=== PATIENT | female | born 1955 | race Caucasian/White ===

== ENCOUNTER 2018-01-06 17:48 | Inpatient (IN) | payer OTHER ==
[~2018-01-06] VITALS: Ht 165.1 cm; Wt 93.0 kg
[~2018-01-06 17:48] MED LIST: ALDACTONE100 MG PO; FEOSOL325 M1 PO; FUROSEMIDE 40 M40 M1 PO; OMEPRAZOLE20 M2; PROPRANOLOL 1010 M1; PROPRANOLOL 20M20 MG PO; PROTONIX40 M2 PO; [UNRECOGNIZED DRUG - OTHER]
[2018-01-06 17:50] VITALS: BP 137/58
[2018-01-06 18:41] LABS: HEMOGLOBIN 9.1 gm/dL (12.0-15.0); MCH 34.1 pg (26.0-34.0); MCHC 35.2 g/dL (28.0-37.0); MCV 96.8 fL (80.0-100.0); MPV 8.5 fl. (7.2-11.1); NUCLEATED RBCS 0 /100WBC; RBC 2.68 mil/uL (4.20-5.00); WBC 5.5 thou/uL (4.0-11.0)
[2018-01-06 18:49] LABS: CALCIUM 8.3 mg/dL (8.5-10.1); CREATININE 2.1 mg/dL (0.6-1.3); POTASSIUM 3.8 mmol/L (3.5-5.1)
[2018-01-06 18:51] LABS: INFLUENZA A ANTIGEN None Detected (None Detect); INFLUENZA B ANTIGEN None Detected (None Detect)
[2018-01-06 18:52] LABS: URINE BILIRUBIN NEGATIVE (Negative); URINE BLOOD TRACE (Negative); URINE CLARITY CLEAR; URINE COLOR YELLOW; URINE GLUCOSE-RANDOM NEGATIVE (Negative); URINE KETONES NEGATIVE (Negative); URINE LEUKOCYTES-REFLEX TRACE (Negative); URINE NITRITE-REFLEX NEGATIVE (Negative); URINE PROTEIN NEGATIVE (Negative); URINE SPECIFIC GRAVITY 1.025 (1.005-1.030); URINE UROBILINOGEN 0.2 E.U./dl (0.2-1.0)
[2018-01-06 18:54] LABS: ALBUMIN 2.8 g/dL (3.4-5.0); TOTAL BILIRUBIN 3.6 mg/dL (<0.1-1.0); TOTAL PROTEIN 6.6 g/dL (6.4-8.2)
[2018-01-06 19:01] LABS: BACTERIA-REFLEX 1-9 Few /HPF (None Seen); MUCUS 0-3 Light strn/LPF (None Seen); SQUAMOUS 0-3 Few /LPF (0-3); URINE RBC 0-2 Rare /HPF (0-2); URINE WBC-REFLEX 0-5 Rare /HPF (0-5)
[2018-01-06] MEDS ORDERED: VITAMINC500 PO (19:01)
[2018-01-06] MEDS ORDERED: VITAMIN D3400 UNIT PO (19:01)
[2018-01-06] MEDS ORDERED: CONSTULOSE10 GM/15 M PO (19:01)
[2018-01-06 19:02] LABS: CASTS None Seen /LPF (None Seen); CRYSTALS None Seen /LPF (None Seen)
[2018-01-06] MEDS ORDERED: OMEPRAZOLE20 M2 PO (19:02)
[2018-01-06] MEDS ORDERED: PROPRANOLOL 20M20 MG PO (19:02)
[2018-01-06 19:12] LABS: PLATELET COUNT* 53 thou/uL (150-400)
[2018-01-06 19:16] LABS: ABSOLUTE LYMPHOCYTES 0.2 thou/uL (0.8-5.3); ABSOLUTE MONOCYTES 0.2 thou/uL (0.0-1.2); ABSOLUTE NEUTROPHILS 5.1 thou/uL (1.6-8.1); PLATELET ESTIMATE DECREASED
--- NOTE | 2018-01-06 19:27 | NUR ---
DR. ANDERSEN PAGED FOR POSITIVE SEPSIS SCREENING. NO CALL BACK YET. [facility]
[2018-01-06 19:45] VITALS: BP 116/41
[2018-01-06 19:46] VITALS: BP 98/45
[2018-01-07 03:55] VITALS: BP 110/34
--- NOTE | 2018-01-07 05:21 | NUR ---
PATIENT ARRIVED FROM ER VIA CART TO ROOM 304 WITH FAMILY AT BEDSIDE. PT ALERT/ORIENTED X4. PT DENIES PAIN. PT ADMITTED WITH CELLULITIS OF LT LEG BUT LEG HAS BROWN DISCOLORATION PT AND DAUGHTER SAID HAS BEEN THERE FOR A LONG TIME. NO REDNESS, SWELLING NOTED. PT HAS HAD TEMPERATURE BUT SAYS SHE IS UNABE TO TAKE IBUPROFEN OR TYLENOL DUE TO LIVER DISEASE. ICE PACKS PLACED UNDER ARMS AND MOST BLANKETS REMOVED. PT IS ON ANTIBIOTICS AT THIS TIME. PT IS NORMALLY UP AD SHARON AT HOME BUT IS VERY WEAK. BED ALARM IS ON AND PT INSTRUCTED TO CALL PRIOR TO GETTING OUT OF BED. PT ORIENTED TO ROOM/POLICIES AND VERBALIZES UNDERSTANDING. FREQUENTLY USED ITEMS AND CALL LIGHT WITHIN REACH. SIDERAILS UPX2. WILL CONTINUE TO MONITOR.
[2018-01-07 08:00] VITALS: BP 122/55
--- NOTE | 2018-01-07 15:40 | NUR ---
PT.ALERT GREGORY ORIENTED. LIVES WITH WHO WAS AT BEDSIDE. ANOTHER COUPLE WAS VISITING BUT PT.SAID THEY COULD STAY. PT.STATED SHE IS NORMALLY INDEPENDENT AT HOME. DOES NOT USE ANY DME BUT HAS DME AT HOME THAT WAS HER MOM'S. PT.HAD BEEN SEEN IN THE WOUND CARE CLINIC BACK IN 2010 AND SAW FOR HER CELLULITIS. SHE SHOULD NOT HAVE ANY DISCHARGE NEEDS.
--- NOTE | 2018-01-07 17:23 | EKG ---
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: Vicky VILLAGOMEZ : 1955 Requested By: Azam Montoya Order Number: [id number] MD: Yasmany Treadwell Measurements Intervals Jackson Rate: 106 P: 89 AK: 139 QRS: 48 QRSD: 85 T: -57 QT: 322 QTc: 428 Interpretive Statements Sinus tachycardia Nonspecific repol abnormality, diffuse leads, consider ischemia Compared to ECG 06/18/2013 14:09:51 Early repolarization now present Sinus rhythm no longer present Electronically Signed On 01-07-2018 17:23:11 CDT by Yasmany Treadwell [email or web address] <ELECTRONICALLY SIGNED> By: Yasmany Treadwell MD, FACC 01/07/18 1723 181 15 Yasmany Treadwell MD, FACC /EPI
[2018-01-08] VITALS: BP 129/48
[2018-01-08 04:31] LABS: HEMATOCRIT 20.2 % (37.0-47.0); MCH 33.8 pg (26.0-34.0); MCHC 35.3 g/dL (28.0-37.0); MCV 95.6 fL (80.0-100.0); MPV 8.5 fl. (7.2-11.1); RBC 2.11 mil/uL (4.20-5.00); RDW-CV 14.3 % (10.5-14.5)
--- NOTE | 2018-01-08 04:37 | NUR ---
PATIENT SLEPT WELL DURING THIS SHIFT. PT UP TO BATHROOM WITH STEADY GAIT. PT DENIES PAIN ON THIS SHIFT. PT WITH FLUIDS/ANTIBIOTICS INFUSING PER DR ORDER. PT HAS BEEN AFEBRILE DURING THIS SHIFT. PT DENIES NEEDS AT THIS TIME. FREQUENTLY USED ITEMS AND CALL LIGHT WITHIN REACH. SIDERAILS UPX2. WILL CONTINUE TO MONITOR.
[2018-01-08 04:41] LABS: HEMOGLOBIN 7.1 gm/dL (12.0-15.0)
[2018-01-08 04:43] LABS: WBC 1.7 thou/uL (4.0-11.0)
[2018-01-08 04:53] LABS: ALBUMIN 2.2 g/dL (3.4-5.0); CALCIUM 7.6 mg/dL (8.5-10.1); CREATININE 1.9 mg/dL (0.6-1.3); MAGNESIUM 1.6 mg/dL (1.8-2.4); POTASSIUM 3.6 mmol/L (3.5-5.1); TOTAL BILIRUBIN 2.4 mg/dL (<0.1-1.0); TOTAL PROTEIN 5.2 g/dL (6.4-8.2)
[2018-01-08 07:37] LABS: HEMATOCRIT 20.3 % (37.0-47.0); HEMOGLOBIN 7.1 gm/dL (12.0-15.0); MCH 33.6 pg (26.0-34.0); MCV 96.1 fL (80.0-100.0); MPV 8.9 fl. (7.2-11.1); NUCLEATED RBCS 0 /100WBC; RBC 2.11 mil/uL (4.20-5.00); RDW-CV 13.8 % (10.5-14.5)
[2018-01-08 07:47] LABS: PLATELET COUNT* 31 thou/uL (150-400); WBC 1.7 thou/uL (4.0-11.0)
[2018-01-08 08:00] VITALS: BP 138/55
[2018-01-08 08:17] LABS: ABSOLUTE LYMPHOCYTES 0.4 thou/uL (0.8-5.3); ABSOLUTE NEUTROPHILS 1.2 thou/uL (1.6-8.1); HYPOCHROMASIA 1+; PLATELET ESTIMATE DECREASED
[2018-01-08 08:18] LABS: ANISOCYTOSIS 1+; POIKILOCYTOSIS 1+
[2018-01-08 12:07] LABS: ABSOLUTE EOSINOPHILS 0.1 thou/uL (0.0-0.7); ABSOLUTE LYMPHOCYTES 0.3 thou/uL (0.8-5.3); ABSOLUTE MONOCYTES 0.3 thou/uL (0.0-1.2); ABSOLUTE NEUTROPHILS 2.4 thou/uL (1.6-8.1); BASOPHILS 0.4 %; EOSINOPHILS 3.1 %; HEMATOCRIT 23.9 % (37.0-47.0); HEMOGLOBIN 8.4 gm/dL (12.0-15.0); LYMPHOCYTES 10.7 %; MCHC 35.4 g/dL (28.0-37.0); MCV 96.2 fL (80.0-100.0); MPV 8.5 fl. (7.2-11.1); NUCLEATED RBCS 0 /100WBC; POLYS 75.8 %; RBC 2.48 mil/uL (4.20-5.00); RDW-CV 14.3 % (10.5-14.5); WBC 3.1 thou/uL (4.0-11.0)
[2018-01-08 12:10] LABS: PLATELET COUNT* 47 thou/uL (150-400)
[2018-01-08 16:00] VITALS: BP 114/49
[2018-01-08 19:08] LABS: IgA 387 mg/dL (87-352); IgG 1130 mg/dL (700-1600); IgM 152 mg/dL (26-217)
[2018-01-09 04:43] LABS: BASOPHILS 0.4 %; EOSINOPHILS 8.7 %; HEMATOCRIT 21.2 % (37.0-47.0); HEMOGLOBIN 7.5 gm/dL (12.0-15.0); LYMPHOCYTES 20.5 %; MCH 34.2 pg (26.0-34.0); MCHC 35.5 g/dL (28.0-37.0); MCV 96.5 fL (80.0-100.0); MONOCYTES 9.1 %; MPV 9.8 fl. (7.2-11.1); NUCLEATED RBCS 0 /100WBC; POLYS 61.3 %; RBC 2.19 mil/uL (4.20-5.00); RDW-CV 14.3 % (10.5-14.5)
[2018-01-09 04:55] LABS: ABSOLUTE EOSINOPHILS 0.2 thou/uL (0.0-0.7); ABSOLUTE LYMPHOCYTES 0.4 thou/uL (0.8-5.3); ABSOLUTE MONOCYTES 0.2 thou/uL (0.0-1.2); ABSOLUTE NEUTROPHILS 1.2 thou/uL (1.6-8.1)
[2018-01-09 04:57] LABS: PLATELET COUNT* 32 thou/uL (150-400); WBC 1.9 thou/uL (4.0-11.0)
[2018-01-09 05:00] LABS: ALBUMIN 2.3 g/dL (3.4-5.0); CALCIUM 8.1 mg/dL (8.5-10.1); CREATININE 1.8 mg/dL (0.6-1.3); MAGNESIUM 1.8 mg/dL (1.8-2.4); POTASSIUM 3.5 mmol/L (3.5-5.1); TOTAL BILIRUBIN 1.7 mg/dL (<0.1-1.0); TOTAL PROTEIN 5.8 g/dL (6.4-8.2)
--- NOTE | 2018-01-09 05:19 | NUR ---
PT. PROGRESSING TOWARDS GOALS. NO C/O PAIN, DENIED NEEDS THROUGHOUT SHIFT. ANXIOUS TO GO HOME TODAY. UP AD SHARON INDEPENDENTLY. CRITICAL PLATELET LEVEL OF 32 AND WBC LEVEL 1.9, EXPECTED OUTCOMES. ANTIBIOTICS ADMINISTERED SCHEDULED. CALL LIGHT IN REACH, DENIES NEEDS AT THIS TIME, WILL CONTINUE TO MONITOR.
[2018-01-09 07:30] VITALS: BP 129/46
--- NOTE | 2018-01-09 07:37 | CON ---
[address] [address] CONSULTATION Name: ERNESTO CHAPMAN Room: [address] IN M.R.#: [id number] Admission: 01/06/18 Attend Phys: Devendra Thomas Discharge: Date of : 55 Report #: [id number] THIS REPORT FOR: //name// CC: Tammy Owens DATE OF SERVICE: 01/08/2018 REFERRING PHYSICIAN: Dr. Sibley. REASON FOR CONSULTATION: Pancytopenia. HISTORY OF PRESENT ILLNESS: A 62-year-old female who has been admitted to the hospital because of left lower extremity pain. She has a history of cellulitis and she has been treated with antibiotics including Zosyn. The patient had a previous history of CARRILLO, nonalcoholic cirrhosis. The patient has been on the transplant list at . The patient was evaluated because of her pancytopenia. Reviewing her WBC, her counts has been hovering on the lower side even back to 2015, the lowest was this morning as 1.7. However, repeated CBC today showed 3.1. In addition to that, her hemoglobin has been as a baseline between 9 and 10, and today is 8.4. Reviewing her platelet count, her baseline is something around in the 50s-70s back in 2017; however, she dropped to 47 today. The patient denies any active bleeding. She is being treated with antibiotics for the cellulitis. REVIEW OF SYSTEMS: All systems were reviewed. It was negative except the above. PAST MEDICAL HISTORY: Nonalcoholic steatohepatitis, she is on the transplant list; chronic pancytopenia, GERD. PAST SURGICAL HISTORY: Tonsillectomy and . SOCIAL HISTORY: No smoking, no alcohol abuse, no drug abuse. FAMILY HISTORY: Noncontributory. ALLERGIES: SHE IS ALLERGIC TO VANCOMYCIN. MEDICATIONS: Per admission list. PHYSICAL EXAMINATION: VITAL SIGNS: Today, temperature is 36.9, pulse 85, respirations 16, blood pressure is 129/48, SpO2 was 100% on 3 liters. GENERAL: The patient was sitting in chair, was not in acute distress. LUNGS: Clear [place] [address] CONSULTATION Name: ERNESTO CHAPMAN Room: [address]#: [id number] Admission: 01/06/18 Attend Phys: Devendra Thomas Discharge: Date of : 55 Report #: [id number] HEART: Regular rate and rhythm, S1, S2 within normal limits. EXTREMITIES: +1 edema bilaterally. IMAGING: Chest x-ray showed no acute cardiopulmonary process. LABORATORY DATA: The most recent one repeated today: WBC 3.1, hemoglobin 8.4, MCV was 96, platelet count 46; however, the absolute neutrophilic count 2.4. ASSESSMENT AND PLAN: A 62-year-old female with liver cirrhosis due to nonalcoholic steatohepatitis. She had a chronic pancytopenia; however, she had worsening after she was admitted. The patient probably has possible dilutional effect. However, her counts started to recover by repeated today. She does not require transfusion. She is getting antibiotics for her infection. However, her absolute neutrophilic count is above 1500. At this point, I would like to continue to monitor and assess the patient for any transfusion needs. At the same time, we will complete the workup by obtaining peripheral blood smear, serum electrophoresis, and iron profile. I will check CBC in the a.m. <ELECTRONICALLY SIGNED> By: Virginie Guthrie MD 01/09/18 0737 1250 20Virginie Guthrie MD /nt
[2018-01-09] MEDS ORDERED: DOXYCYCLINE 10100 MG PO (09:42)
[2018-01-09 11:21] VITALS: BP 129/46
--- NOTE | 2018-01-09 11:52 | NUR ---
PATIENT A&OX4, RA, IV RIGHT FOREARM, SALINE LOCK. IV DISCONTINUED, CATHETER FULLY INTACT. UP AD SHARON, STEADY GAIT. NO C/O PAIN/N/V. NO OTHER CONCERNS AT THIS TIME. PATIENT DISCHARGED, REVEIWED PAPERWORK AT BEDSIDE, SPOUSE AT BEDSIDE. ALL QUESTIONS AND CONCERNS ANSWERED AT THIS TIME. APPROPRIATE AND COOPORATIVE WITH CARE. PATIENT LEFT UNIT AT 1145 VAI W/C WITH ALL BELONGINGS TAKEN WITH PATIENT, NOTHING LEFT BEHIND. APPROPRAITE AND COOPORATIVE WITH CARE.
[2018-01-09 15:07] LABS: KAPPA FREE LIGHT CHAINS 100.2 mg/L (3.3-19.4); LAMBDA FREE LIGHT CHAINS 62.4 mg/L (5.7-26.3)
[2018-01-13 18:06] LABS: GLOBULIN TOTAL 2.7 g/dL (2.2-3.9); M-SPIKE Not Observed g/dL (Not Observed)
== END 2018-01-09 11:45 | disposition home or self-care (01) | DRG 682 ==
LOC: M.ERS 17:48 → M.TBA-ER 18:22 → M.3W 18:22
PROVIDERS: Emergency Medicine; Internal Medicine; ADMIT Internal Medicine
DX: N17.9 Acute kidney failure, unspecified (principal); G92 Toxic encephalopathy; R65.11 Systemic inflammatory response syndrome (SIRS) of non-infectious origin with acute organ dysfunction; L03.116 Cellulitis of left lower limb; D61.818 Other pancytopenia; K21.9 Gastro-esophageal reflux disease without esophagitis; K74.60 Unspecified cirrhosis of liver; K75.81 Nonalcoholic steatohepatitis (NASH); D64.9 Anemia, unspecified; N18.3 Chronic kidney disease, stage 3 (moderate); Z28.21 Immunization not carried out because of patient refusal; Z88.1 Allergy status to other antibiotic agents; Z79.899 Other long term (current) drug therapy

== ENCOUNTER → 2019-08-12 | Outpatient (CLI) | payer OTHER ==
[~2019-08-12] MED LIST changes: +CONSTULOSE10 GM/15 M PO; +DOXYCYCLINE 10100 MG PO; +OMEPRAZOLE20 M2 PO; +VITAMIN D3400 UNIT PO; +VITAMINC500 PO
== END ==
LOC: M.ULTRA 07:43
DX: M75.81 Other shoulder lesions, right shoulder (principal); K74.60 Unspecified cirrhosis of liver; R16.1 Splenomegaly, not elsewhere classified